=== PATIENT | male | born 1985 | race Caucasian/White ===

== ENCOUNTER 2022-10-13 20:56 | Emergency (ER) | payer BC, SELFPAY ==
[2022-10-13 21:00] VITALS: O2SAT 99
[2022-10-13 21:08] VITALS: BP 147/76; PULSE 89; RESP 18; TEMP 36.7; O2SAT 98; BMI 30.7
[2022-10-13] MEDS: ONDANSETRON 2 MG/ML inj 4 MG IVP (21:20)
[2022-10-13] MEDS: 0.9 % SODIUM CHLORIDE 1000 ml 1,000 ML IV (21:20)
[2022-10-13 21:22] VITALS: TEMP 36.7
[2022-10-13] MEDS: KETOROLAC 15 MG/ML inj IVP (21:22)
[2022-10-13 21:27] LABS: Basophils Absolute Auto 0.02 K/uL (0.00-0.30); Basophils Percent Auto 0.3 % (0.0-3.0); Eosinophils Absolute Auto 0.14 K/uL (0.00-0.50); Eosinophils Percent Auto 1.8 % (0.0-7.0); Hematocrit 45.5 % (37.0-53.0); Hemoglobin* 15.9 gm/dL (13.5-17.5); Immature Granulocytes Abs Auto 0.02 K/uL (0.00-0.30); Immature Granulocytes Pct Auto 0.3 %; Lymphocytes Percent Auto 24.4 % (20-44); Mean Corpuscular HGB Conc 35 gm/dL (32-36); Mean Corpuscular Hemoglobin 31 pg (26-34); Mean Corpuscular Volume 88 fL (80-100); Monocytes Percent Auto 9.6 % (0.0-11.0); Neutrophils Absolute Auto 4.95 K/uL (1.7-7.0); Neutrophils Percent Auto 63.6 % (42.0-72.0); Platelet Count* 213 K/uL (140-440); RDW Coefficient of Variation % 11.8 % (11.5-15.5); Red Blood Count 5.15 m/uL (4.30-5.90); White Blood Count* 7.78 K/uL (4.50-11.00)
[2022-10-13 21:30] LABS: Slide Review Reflex No
[2022-10-13 21:41] LABS: Albumin* 5.1 g/dL (3.3-5.0); Chloride* 104 mmol/L (96-114); Sodium* 138 mmol/L (135-149)
[2022-10-13 21:42] LABS: Potassium* 4.3 mmol/L (3.6-5.1)
[2022-10-13 21:43] LABS: Creatinine* 0.9 mg/dL (0.5-1.5); Est. Creatinine Clearance* 122.01; Estimated Glomerular Filt Rate 114 ml/min
[2022-10-13 21:44] LABS: Alkaline Phosphatase* 64 U/L (40-150); Aspartate Amino Transferase* 64 U/L (12-35); Bilirubin Direct* 0.3 mg/dL (0.0-0.5); Bilirubin Total* 0.6 mg/dL (0.1-1.5); Blood Urea Nitrogen* 10 mg/dL (5-24); Calcium* 9.3 mg/dL (8.4-10.6); Carbon Dioxide* 21 mmol/L (20-32); Glucose* 90 mg/dL (60-115); Lipase* 95 U/L (23-300); Total Protein* 8.1 g/dL (6.0-8.3)
[2022-10-13 21:45] LABS: Alanine Aminotransferase* 91 U/L (4-50); Magnesium* 2.2 mg/dL (1.5-2.6)
--- NOTE | 2022-10-13 22:05 | ED.GENADULT ---
HPI - General Adult General Time Seen by Provider: 22:05 Date Seen: 10/13/22 Chief complaint: Abdominal Pain Stated complaint: Stomach pain, digestive issues Time Seen by Provider: 10/13/22 21:08 Source: patient and family Mode of arrival: ambulatory Limitations: no limitations History of Present Illness HPI narrative: 37y/o male c/o abdominal pain for two hours, central, no nausea or vomiting. Has had diarrhea for a couple days, no fever, also mild URI symptoms. No urinary problems. Prior appendectomy, has a pacer defibrillator. Takes Xanax and Citalopram. No smoking, drinks alcohol daily, no increased recently. Related Data Home Medications Medication Instructions Recorded Confirmed alprazolam 2 mg tablet,extended PO 10/13/22 release 24 hr Previous Rx's Medication Instructions Recorded dicyclomine 10 mg capsule 10 mg PO QID PRN abdominal pain 10/13/22 #20 caps Allergies Allergy/AdvReac Type Severity Reaction Status Date / Time No Known Drug Allergies Allergy Verified 10/13/22 21:09 [facility] Medical History (Updated 10/13/22 @ 22:56 by Ludwin Leonard MD) No significant past medical history Surgical History (Updated 10/13/22 @ 22:37 by Kong Prescott RN) No significant past surgical history Social History Smoking Status: Never smoker Second hand tobacco smoke exposure: No How often do you have a drink containing alcohol: never How often do you have six or more drinks on one occasion: Never AUDIT-C Alcohol total score: 0 Non-prescribed substance use: denies use Exam Const: Vital Signs, click to edit/add: Vital Signs - 24 hr 10/13/22 21:00 10/13/22 21:08 10/13/22 21:22 Temperature 98.0 F 98.0 F Pulse Rate [Right Pulse Oximeter] 89 Respiratory Rate 18 Blood Pressure [Ri ght Upper Arm] 147/76 H Pulse Oximetry 99 98 Oxygen Delivery Me thod Room Air 10/13/22 22:21 10/13/22 23:10 10/13/22 23:39 Temperature 98.0 F 98.0 F 98.0 F Pulse Rate [Right Pulse Oximeter] 89 89 Respiratory Rate 18 18 Blood Pressure [Ri ght Upper Arm] 142/85 H 142/85 H Pulse Oximetry 98 Oxygen Delivery Me thod Room Air Course Course Hospital Course: Patient seen and examined, prior records reviewed. Differential diagnosis includes but not limited to gastritis, gastric ulcer, colitis, pancreatitis, acute cholecystitis, diverticulitis, appendicitis, urinary tract infection, bowel obstruction, perforation, kidney stone. Patient presents with epigastric and periumbilical abdominal pain with nausea and some diarrhea. Labs independently interpreted by me demonstrate normal white blood cell count, slight elevation in the AST and ALT, normal lipase, normal alkaline phosphatase. Does have some epigastric tenderness on exam, likely enteritis but CT scan is ordered to evaluate for intra-abdominal of the pathology. Feels better after Toradol and Zofran. Reevaluation(s) Time of Reevaluation #1: 22:53 Reevaluation #1: CT scan is negative for acute findings. Patient is stable for discharge with Bentyl and oxycodone, close follow-up with primary care. No evidence for intra-abdominal pathology including obstruction, cholecystitis, pancreatitis. Mild increase in AST ALT may be related to chronic alcohol use or gastrointestinal distress. Vital Signs Vital signs: Initial Vital Signs Pulse Oximetry 99 10/13/22 21:00 Vital Signs Pulse Oximetry 99 10/13/22 21:00 Temperature 98.0 F 10/13/22 23:39 Pulse Rate 89 10/13/22 23:39 Respiratory Rate 18 10/13/22 23:39 Blood Pressure 142/85 H 10/13/22 23:39 Pulse Oximetry 98 10/13/22 23:10 Oxygen Delivery Method Room Air 10/13/22 23:10 Medical Decision Making Lab Data Labs: Lab Results 10/13/22 Range/Units 21:08 WBC 7.78 (4.50-11.00) K/uL RBC 5.15 (4.30-5.90) m/uL Hgb 15.9 (13.5-17.5) gm/dL Hct 45.5 (37.0-53.0) % MCV 88 (80-100) fL MCH 31 (26-34) pg MCHC 35 (32-36) gm/dL RDW Coeff of Kirstin 11.8 (11.5-15.5) % Plt Count 213 (140-440) K/uL Neut % (Auto) 63.6 (42.0-72.0) % Lymph % (Auto) 24.4 (20-44) % [place] % (Auto) 9.6 (0.0-11.0) % Eos % (Auto) 1.8 (0.0-7.0) % Baso % (Auto) 0.3 (0.0-3.0) % Neut # (Auto) 4.95 (1.7-7.0) K/uL Lymph # (Auto) 1.90 (0.90-2.90) K/uL [place] # (Auto) 0.70 (0.00-0.90) K/UL Eos # (Auto) 0.14 (0.00-0.50) K/uL Baso # (Auto) 0.02 (0.00-0.30) K/uL Abs Immat Gran (auto) 0.02 (0.00-0.30) K/uL Imm/Tot Granulo (auto) 0.3 % Sodium 138 (135-149) mmol/L Potassium 4.3 (3.6-5.1) mmol/L Chloride 104 (96-114) mmol/L Carbon Dioxide 21 (20-32) mmol/L BUN 10 (5-24) mg/dL Creatinine 0.9 (0.5-1.5) mg/dL Estimated Creat Clear 122.01 Estimated GFR 114 ml/min Glucose 90 (60-115) mg/dL Calcium 9.3 (8.4-10.6) mg/dL Magnesium 2.2 (1.5-2.6) mg/dL Total Bilirubin 0.6 (0.1-1.5) mg/dL Direct Bilirubin 0.3 (0.0-0.5) mg/dL AST 64 H (12-35) U/L ALT 91 H (4-50) U/L Alkaline Phosphatase 64 (40-150) U/L Total Protein 8.1 (6.0-8.3) g/dL Albumin 5.1 H (3.3-5.0) g/dL Lipase 95 (23-300) U/L Discharge Plan Discharge Clinical Impression: Transaminitis, Abdominal pain Patient Disposition: Home, Self-Care Condition: Stable Instructions: Acute Abdominal Pain (DC) Additional Instructions: Liquid diet for 24 hours Take medications for pain and nausea as prescribed Follow-up with your regular doctor this week if needed Discharge Diet: Regular Prescriptions: New dicyclomine 10 mg capsule 10 mg PO QID PRN (Reason: abdominal pain) Qty: 20 0RF No Action alprazolam 2 mg tablet extended release 24 hr PO Stand Alone Forms: MyHealth Info Instructions
--- NOTE | 2022-10-13 22:09 | CRLHL7_ITS ---
For Patients: As a result of the Cures Act, medical imaging exams and procedure reports are released immediately into your electronic medical record. You may view this report before your referring provider. If you have questions, please contact your health care provider. INDICATION: Abdominal pain TECHNIQUE: CT abdomen and pelvis acquired with 100 cc Isovue 370 IV contrast. Permanently recorded images are archived. COMPARISON: CT abdomen and pelvis 02/08/2018 FINDINGS: Lower chest: Partially imaged cardiac device lead in right ventricle. Liver: Unremarkable. Normal in size and attenuation. No suspicious masses. Gallbladder and bile ducts: Unremarkable. No stones or inflammation. No biliary dilatation. Pancreas: Unremarkable. No mass or inflammation. Spleen: Unremarkable. Normal in size. No masses. Adrenal glands: Unremarkable. No nodules. Kidneys, Ureters, and Bladder: Punctate nonobstructing stone left kidney inferior pole. Unremarkable right kidney. Unremarkable ureters and bladder. GI tract: Unremarkable. Normal in caliber. No sign of inflammation. Status post appendectomy. Vasculature: Abdominal aorta is normal in caliber. Mesenteric arteries are patent. Lymph nodes: No lymphadenopathy. Peritoneum/Abdominal Wall: Unremarkable. No free air or significant free fluid. Pelvis: Unremarkable. Bones: Unremarkable for age. IMPRESSION: No acute findings within the abdomen and pelvis. Punctate nonobstructing left nephrolith. Please note that all CT scans at this facility use dose modulation, iterative reconstruction, and/or weight-based dosing when appropriate to reduce radiation dose to as low as reasonably achievable. Dictated by Chato Castellano MD @ 10/13/2022 10:44:43 PM (Electronically Signed)
[2022-10-13 22:21] VITALS: TEMP 36.7
[2022-10-13] MEDS: HYDROmorphone 0.5 mg/0.5 ml inj IVP (23:07)
[2022-10-13 23:10] VITALS: BP 142/85; PULSE 89; RESP 18; TEMP 36.7; O2SAT 98
[2022-10-13 23:39] VITALS: BP 142/85; PULSE 89; RESP 18; TEMP 36.7
== END 2022-10-13 23:39 | disposition home or self-care (01) ==
PROVIDERS: Emergency Provider Family Medicine
DX: R10.9 Unspecified abdominal pain (principal); R74.01 Elevation of levels of liver transaminase levels
CPT/HCPCS: 36415; 74177; 80048; 80076; 83690; 83735; 85025; 94761; 96374; 96375; 99284; J1170; J1885; J2405; J7030; Q9967